=== PATIENT | male | born 1990 | race African-American/Black ===

== ENCOUNTER 2018-05-24 00:25 | Emergency (ER) | payer OTHER ==
[~2018-05-24] VITALS: Ht 172.7 cm; Wt 111.1 kg
--- NOTE | ~2018-05-24 | EKG ---
[place] [address] [facility] [place] [address] ELECTROCARDIOGRAM REPORT Name: DERECK HOPPER Room #: DEP FABIAN Anderson#: [id number] Admission: 05/24/18 Attend Phys: Discharge: 05/24/18 Date of : 86 Report #: [id number] THIS REPORT FOR: //name// [facility] ED Test Date: 2018-05-24 Test Time: 00:33:33 Pat Name: DERECK HOPPER Department: Room: Gender: Environmental Health Technician: MEHDI : 1990 Requested By: Cornelio Martinez Order Number: [id number] MD: Jesus Muhammad Measurements Intervals [place] Rate: 78 P: 30 MA: 123 QRS: 35 QRSD: 80 T: QT: 371 QTc: 423 Interpretive Statements Sinus rhythm Borderline T abnormalities, lateral leads No previous ECG available for comparison Electronically Signed On 05-24-2018 8:21:39 CDT by Jesus Muhammad [email or web address] <ELECTRONICALLY SIGNED> By: Jesus Muhammad MD 05/24/18 0821 0033 0033 Jesus Muhammad MD /GISELA
[2018-05-24 01:24] LABS: ANION GAP 13 mmol/L (7-16); BUN 22 mg/dL (7-18); CALCIUM 8.6 mg/dL (8.5-10.1); CHLORIDE 102 mmol/L (98-107); CO2 28 mmol/L (21-32); CREATININE 1.1 mg/dL (0.7-1.3); SODIUM 143 mmol/L (136-145)
[2018-05-24 01:29] LABS: GLUCOSE 116 mg/dL (74-106); POTASSIUM 4.1 mmol/L (3.5-5.1)
[2018-05-24 01:40] LABS: HEMATOCRIT 44.5 % (42.0-52.0); HEMOGLOBIN 15.3 gm/dL (14.0-18.0); MCH 31.5 pg (26.0-34.0); MCHC 34.3 g/dL (28.0-37.0); MCV 91.8 fL (80.0-100.0); RBC 4.85 mil/uL (4.50-6.00); RDW 13.1 % (10.5-14.5); WBC 6.6 thou/uL (4.0-11.0)
[2018-05-24 01:48] LABS: ALBUMIN 4.1 g/dL (3.4-5.0); SGPT 38 U/L (30-65); TOTAL BILIRUBIN 0.5 mg/dL (<0.1-1.0); TOTAL PROTEIN 8.1 g/dL (6.4-8.2); TROPONIN-I <0.06 ng/mL (<0.06)
[2018-05-24 02:01] LABS: SGOT 30 U/L (15-37)
[2018-05-24 03:49] VITALS: BP 116/65
== END 2018-05-24 03:49 | disposition home or self-care (01) ==
LOC: ER 00:25
PROVIDERS: Emergency Medicine
DX: R07.89 Other chest pain (principal); I10 Essential (primary) hypertension; Z87.01 Personal history of pneumonia (recurrent); Z82.49 Family history of ischemic heart disease and other diseases of the circulatory system